=== PATIENT | male | born 1990 | race African-American/Black ===

== ENCOUNTER 2017-07-27 23:58 | Emergency (ER) | payer OTHER ==
[2017-07-28] MEDS ORDERED: Sodium Chloride 0.9% 10 ML Syringe FLUSH PRN (00:05)
[2017-07-28 00:06] VITALS: BP 135/60
--- NOTE | 2017-07-28 00:10 | EDM.PDOC ---
ED HPI GENERAL MEDICAL PROBLEM - General Chief Complaint: Chest Pain Stated Complaint: [facility] Time Seen by Provider: 07/28/17 00:04 Source of Information: Reports: Patient History Limitations: Reports: No Limitations - History of Present Illness INITIAL COMMENTS - FREE TEXT/NARRATIVE: 27-year-old male presents the ED with acute onset of sharp stabbing pleuritic chest pain. Came on approximately an hour before coming to the ED. States is very sharp and stabbing and actually limited his mobility and ability to take a deep breath for a period of time. Was felt just to the right of the mid sternum. He did not seem to radiate through to his back. He has been mildly ill with a cough that comes in the nighttime with little bit of mucus production. No fever or chills. He has one of his children with a similar condition. He does work out regularly but has not worked his pectoralis muscles for lengthy period of time. No falls or injuries to the area. He otherwise usually enjoys good health takes no medications. Came to the ED by ambulance tonight because of the severity of the pain. Onset: Today Onset Date: 07/27/17 Onset Time: 23:10 Duration: Minutes: Location: Reports: Chest (right mid parasternal chest. ) Quality: Reports: Sharp, Stabbing, Other Severity: Moderate (pleuritic) Improves with: Reports: None (to severe at times.) Worsens with: Reports: Movement (and deep breathing.) Context: Denies: Activity, Exercise, Lifting, Sick Contact, Trauma, Other Associated Symptoms: Reports: Chest Pain (cough mostly in the evenings.), Cough (mild sputum production), cough w sputum. 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 [No Known Home Meds] 03/12/16 [History] Past Medical History - Past Health History Medical/Surgical History: Denies Medical/Surgical History Musculoskeletal History: Reports: None - Past Surgical History HEENT Surgical History: Reports: Other (See Below) GI Surgical History: Reports: Hernia, Inguinal Social & Family History - Family History Family Medical History: Noncontributory - Tobacco Use Smoking Status *Q: Never Smoker - Recreational Drug Use Recreational Drug Use: No - Living Situation & Occupation Living situation: Reports: , with Family Occupation: Employed ED ROS GENERAL - Review of Systems Review Of Systems: See Below ED EXAM, GENERAL - Physical Exam Exam: See Below Exam Limited By: No Limitations General Appearance: Alert, WD/WN, Anxious, Mild Distress Eye Exam: Bilateral Eye: Normal Inspection Throat/Mouth: Normal Inspection, Normal Lips, Normal Teeth, Normal Oropharynx Head: Atraumatic, Normocephalic Neck: Normal Inspection, Supple, Non-Tender, Full Range of Motion. No: Lymphadenopathy (L), Lymphadenopathy (R) Respiratory/Chest: No Respiratory Distress, Lungs Clear, Normal Breath Sounds, No Accessory Muscle Use, Other (no chest wall pain on palpation of the ribs and costochondral joints.) Cardiovascular: Normal Peripheral Pulses, Regular Rate, Rhythm, No Edema, No Gallop, No Murmur Peripheral Pulses: 3+: Posterior Tibial (L), Posterior Tibial (R), Dorsalis Pedis (L), Dorsalis Pedis (R) GI/Abdominal: Normal Bowel Sounds, Soft, Non-Tender, No Organomegaly, No Distention (Male) Exam: No Hernia Back Exam: Normal Inspection, Full Range of Motion Extremities: Normal Inspection, Normal Range of Motion, Non-Tender, No Pedal Edema Neurological: Alert, Oriented, CN II-XII Intact, Normal Cognition, Normal Gait Psychiatric: Normal Affect, Normal Mood Skin Exam: Warm, Dry, Intact, Normal Color, No Rash Course - Vital Signs Last Recorded V/S: Last Vital Signs Temp 37.0 C 07/28/17 00:00 Pulse 64 07/28/17 00:00 Resp 17 07/28/17 00:00 BP 135/60 07/28/17 00:00 Pulse Ox 100 07/28/17 00:00 - Orders/Labs/Meds Orders: Active Orders 24 hr Category Date Time Status Peripheral IV Care [RC] . DIRECTED Care 07/28/17 00:05 Active Chest 1V Frontal [CR] Stat Exams 07/28/17 00:04 Taken Sodium Chloride 0.9% [Saline Flush] Med 07/28/17 00:05 Active 10 ml FLUSH ASDIRECTED PRN Peripheral IV Insertion Adult [OM.PC] Stat Oth 07/28/17 00:05 Ordered Medication Orders Sodium Chloride (Saline Flush) 10 ml FLUSH ASDIRECTED PRN PRN Reason: Keep Vein Open Labs: Laboratory Tests 07/28/17 07/28/17 07/28/17 Range/Units 00:05 00:25 00:25 WBC 5.52 (4.23-9.07) K/mm3 RBC 5.11 (4.63-6.08) M/mm3 Hgb 14.4 (13.7-17.5) gm/L Hct 43.6 (40.1-51.0) % MCV 85.3 (79.0-92.2) fl MCH 28.2 (25.7-32.2) pg MCHC 33.0 (32.2-35.5) g/dl RDW Std Deviation 41.9 (35.1-43.9) fL Plt Count 176 (163-337) K/mm3 MPV 11.1 (9.4-12.3) fl Neutrophils % (Manual) 47 (40-60) % Band Neutrophils % 0 (0-10) % Lymphocytes % (Manual) 39 (20-40) % Atypical Lymphs % 7 % Monocytes % (Manual) 6 (2-10) % Eosinophils % (Manual) 0 L (0.8-7.0) % Basophils % (Manual) 1 (0.2-1.2) Platelet Estimate Adequate Plt Morphology Comment Normal RBC Morph Comment Normal D-Dimer, Quantitative < 0.19 L (0.19-0.59) mg/L Sodium 145 (136-145) mEq/L Potassium 3.6 (3.5-5.1) mEq/L Chloride 107 (98-107) mEq/L Carbon Dioxide 31 (21-32) mEq/L Anion Gap 10.6 (5-15) BUN 12 (7-18) mg/dL Creatinine 1.4 H (0.7-1.3) mg/dL Est Cr Clr Drug Dosing 87.19 mL/min Estimated GFR (MDRD) > 60 (>60) mL/min BUN/Creatinine Ratio 8.6 L (14-18) Glucose 105 (74-106) mg/dL Calcium 9.5 (8.5-10.1) mg/dL Total Bilirubin 0.3 (0.2-1.0) mg/dL AST 30 (15-37) U/L ALT 36 (16-63) U/L Alkaline Phosphatase 78 (46-116) U/L CK-MB (CK-2) 0.8 (0-3.6) ng/ml Troponin I < 0.017 (0.00-0.056) ng/mL C-Reactive Protein < 0.2 (<1.0) mg/dL Total Protein 7.9 (6.4-8.2) g/dl Albumin 3.9 (3.4-5.0) g/dl Globulin 4.0 gm/dL Albumin/Globulin Ratio 1.0 (1-2) Meds: Medications Generic Name Dose Route Start Last Admin Trade Name Freq PRN Reason Stop Dose Admin Sodium Chloride 10 ml 07/28/17 00:05 Saline Flush FLUSH ASDIRECTED PRN Keep Vein Open Discontinued Medications Generic Name Dose Route Start Last Admin Trade Name Freq PRN Reason Stop Dose Admin Ibuprofen 800 mg 07/28/17 00:28 07/28/17 00:32 Motrin PO 07/28/17 00:29 800 mg ONETIME ONE Administration Ketorolac Tromethamine 30 mg 07/28/17 00:15 Toradol IVPUSH ONETIME JESSICA - Radiology Interpretation Free Text/Narrative:: 27-year-old male presents the ED per ambulance with sudden onset of right mid sternal chest pain which is very sharp and stabbing and pleuritic. He reports he has a mild viral perspective tract infection with cough usually in the evenings. Minimal sputum production. No associated fever or chills. Exam nation refer reveals him to be afebrile. Lungs are clear to stage percussion heart was sinus with no murmurs. No chest wall pain could be elicited on firm palpation of the ribs and the costochondral joints. Clinically he has some pleuritic chest pain which is likely intercostal muscle spasm versus pleurisy. Chest x- ray to be done. ECG revealed sinus rhythm at 72/m with a left ventricular per the pattern. This is normal for his age. T wave inversion in leads 3 and aVF which are themselves are nonspecific. Is also T-wave inversion in V2. Plan routine labs to be obtained CBC CMP and a troponin and CRP level. One view chest x-ray will be obtained - Re-Assessments/Exams Free Text/Narrative Re-Assessment/Exam: 07/28/17 00:25: chest x-ray done portably reveals normal heart size clear lung salazar. Normal chest x-raypatient is very apprehensive about having a IV started. He couldn't hold still and the nurses tried twice to start an IV without success. Therefore the procedure will be abandoned. 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 Plan I will give him 800 mg of Motrin per ora instead. He will have lab work obtained from antecubital fossa. 07/28/17 01:11Labs are back. Total white count is 5.52 with a normal differential hematoma in 14.4 with hematocrit of 43.6. Differential shows 47% neutrophils. Plan to 176,000. D-dimer was less than 0.19. Chemistry is completely normal other than a creatinine of 1.4. EGFR is greater than 60. Cardiac markers are completely normal. CRP was less than 0.2.patient has very mild pain on deep inspiration at this time. Patient reassured that appears to be pleuritic type pain likely viral in origin since his lab work is so normal. Advise anti-inflammatory such as Motrin 600 mg every 6 hours or Aleve 2 tablets every 8 hours for about a week to reduce the inflammation and prevent similar type pain. He is to return to medical care if he develops any fever in the next week or 10 days. Departure - Departure Time of Disposition: Disposition: Home, Self-Care 01 Condition: Fair Clinical Impression: Non-cardiac chest pain, Pleuritic chest pain, Viral bronchitis Instructions: Acute Bronchitis, [id number], Nonspecific Chest Pain, Easy-to- Read Referrals: Arsh De Leon MD [Primary Care Provider] - Forms: ED Department Discharge Additional Instructions: evaluation in the emergency room done tonight due to development of severe sharp stabbing right parasternal chest pains at home. Associated mild cough the last few nights and one of your children is sick with similar type illness. He did fever or chills. Minimal sputum production. Chest x-ray done reveals no signs of a pneumonia or active infection. Lab tests were done that ruled out any blood clots in the lung and revealed normal heart function. No signs of heart attack. Also markers for bacterial infection were all negative with a normal white count. Therefore it appears that this infection is viral and likely causing and inflammation of the lung lining call pleurisy. Deep breathing causes the sharp stabbing pain to get much worse. Usually this type of pain comes and goes. Suggest use of anti-inflammatory such as Aleve 2 tablets every 8 hours for about 5-7 days or Motrin 600 mg every 6 hours for several. Of time to reduce the inflammation and pain. Reason to return to medical care would be development of fever or increasing productive cough. This would be more suggestive of a developing pneumonia. Usually associated with a fever and chills. - My Orders Last 24 Hours: My Active Orders 07/28/17 00:04 Chest 1V Frontal [CR] Stat 07/28/17 00:05 Peripheral IV Care [RC] . DIRECTED Sodium Chloride 0.9% [Saline Flush] 10 ml FLUSH ASDIRECTED PRN Peripheral IV Insertion Adult [OM.PC] Stat - Assessment/Plan Last 24 Hours: My Active Orders 07/28/17 00:04 Chest 1V Frontal [CR] Stat 07/28/17 00:05 Peripheral IV Care [RC] . DIRECTED Sodium Chloride 0.9% [Saline Flush] 10 ml FLUSH ASDIRECTED PRN Peripheral IV Insertion Adult [OM.PC] Stat
[2017-07-28] MEDS ORDERED: Ketorolac 30 MG/ML SDV IVPUSH SCH (00:15)
[2017-07-28] MEDS ORDERED: Ibuprofen 800 MG Tab PO ONE (00:28)
--- NOTE | 2017-07-29 12:50 | CR ---
Chest: Portable view of the chest was obtained. Comparison: No prior chest x-rays available. Heart size and mediastinum are within normal limits. Lungs are clear. Bony structures are grossly intact. Impression: 1. Nothing acute is identified on portable chest x-ray. Diagnostic code #1
== END 2017-07-28 01:36 | disposition home or self-care (01) ==
LOC: JD.ED 23:58
DX: R07.81 Pleurodynia (principal); J20.8 Acute bronchitis due to other specified organisms; B97.89 Other viral agents as the cause of diseases classified elsewhere
CPT/HCPCS: 36415; 71010; 80053; 82553; 84484; 85025; 85379; 86140; 93005; 99285; A9270; 93010; 99284

== ENCOUNTER 2020-04-05 07:33 | Emergency (ER) | payer OTHER ==
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
[2020-04-05 09:05] VITALS: BP 149/102; PULSE 71
== END 2020-04-05 08:57 | disposition home or self-care (01) ==
LOC: JD.ED 07:33
DX: J70.5 Respiratory conditions due to smoke inhalation (principal)
CPT/HCPCS: 82375; 99282; 99283